=== PATIENT | male | born 1950 | race Caucasian/White ===

== ENCOUNTER → 2019-05-20 14:47 | Outpatient (CLI) | payer MEDICARE, OTHER, SELFPAY ==
--- NOTE | 2019-05-20 16:28 | PM.TREADMILL ---
Cardiac Stress Test Report Referral & Results Date Patient Seen: 05/20/19 Requesting provider: Elke Good Indication: Abnormal ECG Procedure Note: Today following both written and verbal informed consent the patient was exercised according to a standard [facility] protocol patient went for a total of 7 minutes 41 seconds achieving a maximum heart rate of 138 maximum systolic blood pressure of 186. This is approximately 10.1 METS. Exercise was terminated at this point because of targets were met. Patient was also given Cardiolite through a previously started Hep-Lock IV by the nuclear cardiology technologist approximately 1 minute prior to the cessation of exercise. No ST-T segment changes Normal heart rate and blood pressure response to exercise Functional aerobic impairment rated-10% on the active scale or 110% of normal Occasional to rare PAC Impression: No evidence of ischemia based on usual ECG criteria Excellent exercise capacity PACs Please note: Actual ECG tracings can be found in the PACS system.
== END ==
PROVIDERS: Visit Provider Family Medicine
DX: R94.31 Abnormal electrocardiogram [ECG] [EKG] (principal)
CPT/HCPCS: 93016; 93017; 93018